=== PATIENT | male | born 1965 | race Caucasian/White ===

== ENCOUNTER 2018-10-26 16:35 | Emergency (ER) | payer MEDICARE ==
[2018-10-26] MEDS ORDERED: Sodium Chloride 0.9% 100 ML ONE (17:01)
[2018-10-26] MEDS ORDERED: cefTRIAXone\\ROCEPHIN 1 GM VIAL ONE (17:01)
[2018-10-26 17:13] LABS: #Basophils 0.2 thou/uL (0.0-0.2); #Eosinphils 0.2 thou/uL (0.0-0.7); #Lymphocytes 2.6 thou/uL (1.20-3.40); #Monocytes 0.3 thou/uL (0.11-0.59); #Neutrophils 5.9 thou/uL (1.40-6.50); %Basophils 1.7 % (0.0-1.0); %Eosinophils 1.8 % (0.0-10.0); %Lymphocytes 28.4 % (21.0-51.0); %Monocytes 3.6 % (0.0-10.0); %Neutrophils 64.5 % (42.0-75.0); Hemoglobin 14.7 g/dL (14.0-18.0); Mean Corpuscular HGB CONC 33.3 g/dL (32.0-36.0); Mean Corpuscular Hemoglobin 29.8 pg (27.0-31.0); Mean Corpuscular Volume 89.6 fL (78.0-98.0); Mean Platelet Volume 9.2 fL (7.4-10.4); Platelet Count 218 thou/uL (130-400); Red Blood Cell (RBC) Count 4.94 mill/uL (4.70-6.10); White Blood Cell (WBC) Count 9.2 thou/uL (4.8-10.8)
[2018-10-26 17:26] LABS: ALT (SGPT) 46 U/L (8-55); AST (SGOT) 38 U/L (5-34); Albumin 4.8 g/dL (3.5-5.0); Alkaline Phosphatase 77 U/L (40-150); Anion Gap 19 mmol/L (10-20); BUN (Urea Nitrogen) 33 mg/dL (8.4-25.7); Bilirubin, Total 0.4 mg/dL (0.2-1.2); Calc. Creatinine Clearance 0 mL/min (70-130); Calcium 10.6 mg/dL (7.8-10.44); Carbon Dioxide 22 mmol/L (22-29); Chloride 99 mmol/L (98-107); Estimated GFR-MDRD 46; Globulin 3.5 g/dL (2.4-3.5); Glucose 180 mg/dL (70-105); Potassium 4.3 mmol/L (3.5-5.1); Protein, Total 8.3 g/dL (6.0-8.3); Sodium 136 mmol/L (136-145)
[2018-10-26] MEDS ORDERED: predniSONE 20 MG TAB ONE (17:49)
== END 2018-10-26 17:55 | disposition home or self-care (01) ==
LOC: BURERS 16:35
DX: L03.113 Cellulitis of right upper limb (principal); E11.9 Type 2 diabetes mellitus without complications; E78.5 Hyperlipidemia, unspecified; I10 Essential (primary) hypertension; F41.9 Anxiety disorder, unspecified; F32.9 Major depressive disorder, single episode, unspecified; F17.210 Nicotine dependence, cigarettes, uncomplicated; Z79.4 Long term (current) use of insulin; Z79.899 Other long term (current) drug therapy
CPT/HCPCS: 80053; 83605; 85025; 87040; 96365; J0696; J3490; J7512